=== PATIENT | female | born 1980 | race Caucasian/White ===

== ENCOUNTER 2016-03-27 14:23 | Emergency (ER) | payer MEDICAID ==
[~2016-03-27] VITALS: Ht 162.6 cm; Wt 81.4 kg
[2016-03-27] MEDS ORDERED: ACETAMINOPHEN 500 MG TABLET PO ONE (15:15)
[2016-03-27 15:46] LABS: INFLUENZA TYPE B NEGATIVE FOR TYPE B (NEGATIVE)
[2016-03-27 16:14] VITALS: BP 114/75
== END 2016-03-27 16:22 | disposition home or self-care (01) ==
LOC: EMS 14:28
DX: R05 Cough (principal); M79.1 Myalgia; R11.0 Nausea
CPT/HCPCS: 81025; 87804; 99284